=== PATIENT | female | born 1970 | race Caucasian/White ===

== ENCOUNTER → 2020-08-03 | Outpatient (CLI) | payer OTHER ==
[~2020-08-03] MED LIST: EXPECTORANT200 MG PO; IBU800 MG PO; PREDNISONE10 MG PO; PROVENTIL HFA6.7 GM INH; SILVADENE CREAM20 GM TOP; ZITHROMAX250 MG PO
== END ==
LOC: KOH-I 10:28
DX: H65.23 Chronic serous otitis media, bilateral (principal); H93.13 Tinnitus, bilateral
CPT/HCPCS: 70480

== ENCOUNTER 2021-08-21 15:45 | Emergency (ER) | payer OTHER | END 2021-08-21 17:24 | disposition home or self-care (01) | LOC: ER1 15:45 | DX: S89.92XA Unspecified injury of left lower leg, initial encounter (principal); W19.XXXA Unspecified fall, initial encounter | CPT/HCPCS: 73130; 73610; 99283 ==